=== PATIENT | male | born 1985 | race Caucasian/White ===

== ENCOUNTER 2019-05-13 05:13 | Emergency (ER) | payer BC, OTHER ==
--- NOTE | 2019-05-13 05:29 | ED ---
Skin Complaint - HPI Summary HPI Summary: 33-year-old male with no significant past medical history presents to the emergency department today with chief complaint of a worsening abscess on the right side of his face which began 2 days ago. He was recently seen in urgent care yesterday and placed on Bactrim. The patient states he has taken 2 doses of Bactrim but his abscess continues to increase in pain, swelling, warmth. He describes this pain as a 4 out of 10 aching pain on his right cheek. He came in today with concerns that his antibiotic is not adequate to treat this. he denies fevers, chills, changes in vision, pain with eye movements, dental pain, difficulty breathing. He does state his pain is worse when he moves his jaw. he has not taken any pain medication prior to arrival. He denies any recreational drug, alcohol use, smoking. He denies fever, chest pain, abdominal pain, pain with urination, rash. - History of Current Complaint Chief Complaint: EDRashSkinAbscess Time Seen by Provider: 05/13/19 05:28 Stated Complaint: FACIAL SWELLING PER PT Hx Obtained From: Patient Onset/Duration: Started Days Ago - 2 days ago Timing: Constant Onset Severity: Mild Current Severity: Mild Pain Intensity: 3 Pain Scale Used: 0-10 Numeric Skin Location: Face - Right side of face near cheek Character: Swelling, Pain, Redness, Raised, Painful Aggravating Symptom(s): Touch, Other: - Talking, moving mouth Associated Signs & Symptoms: Tenderness - Allergy/Home Medications Allergies/Adverse Reactions: Allergies Allergy/AdvReac Type Severity Reaction Status Date / Time No Known Allergies Allergy Verified 05/13/19 05:22 PMH/Surg Hx/FS Hx/Imm Hx Infectious Disease History: No Infectious Disease History: Denies: Traveled Outside the [place] in Last 30 Days Review of Systems Constitutional: Negative Negative: Fever Negative: Photophobia, Blurred Vision, Diplopia, Erythema Negative: Dental Pain, Sore Throat, Ear Ache, Nasal Discharge Cardiovascular: Negative Respiratory: Negative Gastrointestinal: Negative Negative: Decreased ROM Positive: Other - erythema to right cheek and lower right eye lid Negative: Headache, Slurred Speech Psychological: Normal All Other Systems Reviewed And Are Negative: Yes Physical Exam Triage Information Reviewed: Yes Vital Signs On Initial Exam: Initial Vitals Temp Pulse Resp BP Pulse Ox 98.5 F 79 16 124/72 98 05/13/19 05:16 05/13/19 05:16 05/13/19 05:16 05/13/19 05:16 05/13/19 05:16 Vital Signs Reviewed: Yes Appearance: Positive: Well-Appearing, No Pain Distress Skin: Positive: Warm, Skin Color Reflects Adequate Perfusion, Other - Significant abscess noted to the patient's right cheek. TENS unit centimeter in diameter area of erythema and mild induration overlying the right cheek. Erythema extends to the patient's right lower eyelid. Since warm to the touch. No appreciable area of fluctuance. Head/Face: Positive: Normal Head/Face Inspection Eyes: Positive: Normal, EOMI, INÉS, Other: - No pain with extraocular movement. No complaints of double vision. ENT: Positive: Hearing grossly normal, Pharynx normal, TMs normal, Uvula midline , Other - No dental pain. Negative: Nasal drainage, TM bulging, TM dull, TM red , Tonsillar swelling, Tonsillar exudate, Trismus, Muffled voice, Hoarse voice Dental: Positive: Other - Abscess on right cheek does not involve gingiva or show signs of being a dental abscess.. Negative: Percussion Tenderness @, Dental Fracture @, Abscess @ Neck: Positive: Nontender Respiratory/Lung Sounds: Positive: Clear to Auscultation, Breath Sounds Present Cardiovascular: Positive: Normal, RRR, S1, S2 Neurological: Positive: Sensory/Motor Intact, Alert, Oriented to Person Place, Time, Speech Normal. Negative: EOM Palsy Psychiatric: Positive: Normal AVPU Assessment: Alert Procedures - Sedation Patient Received Moderate/Deep Sedation with Procedure: No Diagnostics - Vital Signs Vital Signs Temp Pulse Resp BP Pulse Ox 05/13/19 05:16 98.5 F 79 16 124/72 98 - Laboratory Result Diagrams: 05/13/19 06:23 05/13/19 06:23 Lab Statement: Any lab studies that have been ordered have been reviewed, and results considered in the medical decision making process. Course/Dx - Course Course Of Treatment: Patient was evaluated in the emergency department today for a facial abscess on his right cheek which began 2 days ago. he came in today due to worsening symptoms although he was seen at urgent care yesterday and placed on Bactrim. He is currently taking 2 doses. The patient was seen and evaluated. Physical exam and vital sign showed no evidence of systemic illness or signs of sepsis. An IV was placed and he was given a dose of 300 mg of IV clindamycin. Laboratory studies and CT maxillofacial with contrast were obtained to investigate severity of the abscess. CT scan with IV contrast of the maxillofacial region showed no evidence of an abscess but did reveal an area of cellulitis of the right cheek. There was no evidence on CT of orbital or preorbital cellulitis. Due to lack of abscess formation incision and drainage was not needed. An additional antibiotic was prescribed him Keflex 500 mg to be taken 4 times a day which is to be taken with his current prescription of Bactrim for treatment of the cellulitis. He was informed to follow-up with his primary care physician in 2-3 days for skin check and continued management. He was told to return to the emergency department immediately if he develops any new or worsening symptoms. His vitals were stable to time of discharge. He agreed with this plan. - Differential Diagnoses - Skin Complaint Differential Diagnoses: Abscess, Cellulitis - Diagnoses Provider Diagnoses: Cellulitis Discharge ED - Sign-Out/Discharge Documenting (check all that apply): Patient Departure - Discharge Plan Condition: Improved Disposition: HOME Prescriptions: Cephalexin CAP* [Keflex CAP*] 500 mg PO QID #28 cap Patient Education Materials: Cellulitis (ED) Referrals: Care [facility] [Outside] - 2 Days Leonid Joe MD [Primary Care Provider] - 2 Days Additional Instructions: You were seen in the emergency department today due to cellulitis on your right cheek which continued to get worse. The CT scan of your maxillofacial region showed evidence of cellulitis but no abscess. Please continue taking your prescribed Bactrim for continued management of your cellulitis as well as the new antibiotic I have sent to your pharmacy called Keflex. This antibiotic is to be taken every 6 hours or 4 times a day for 7 days. Please in short to be taking both Keflex and Bactrim every day for dual therapy. You may take ibuprofen 600 mg every 6 hours as needed for pain and inflammation. Do not take this for longer than one week. If you develop any new symptoms such as fever, chills, pain with moving your eyes, significantly decreased vision or your symptoms continue to worsen please return to the emergency Department immediately. Please follow-up with your primary care doctor in 2-3 days for skin check and further management. - Billing Disposition and Condition Condition: IMPROVED Disposition: Home - Attestation Statements Provider Attestation: pt seen by midlevel provider independently, based on their assessment, it was not necessary to present the case to me but I was available for consultation. I did not form a physician-patient relationship with the patient. The chart however, has been reviewed. am signing this note strictly in an administrative capacity. Addendum entered and electronically signed by Bolivar Cruz PA 05/13/19 09:13: ED Addendum Addendum: CBC with differential resulted with no evidence of leukocytosis with white blood cell count 7.6. Platelet count is normal. Chemistry panel shows no electrolyte abnormalities as well as normal renal function and liver function. His C-reactive protein was slightly elevated at 32.48 and ESR was mildly elevated at 16 likely due to his cellulitis His laboratory results and vital signs indicate no signs of systemic illness such as sepsis as a consequence of his cellulitis.
[2019-05-13] MEDS: Clindamycin 300 MG IVPREMIX* 300 MG/50 ML SDV IVPB ONE (05:58)
[2019-05-13 06:50] LABS: ABS Eosinophils 0.1 10^3/ul (0-0.6); ABS Lymphocytes 1.4 10^3/ul (1.0-4.8); ABS Monocytes 0.9 10^3/ul (0-0.8); ABS Neutrophils 5.3 10^3/ul (1.5-7.7); Eosinophil % 1.2 %; Hematocrit 42 % (42-52); Hemoglobin 14.7 g/dL (14.0-18.0); Lymphocyte % 17.9 %; Mean Corpuscular HGB Conc 35 g/dL (31-36); Mean Corpuscular Hemoglobin 33 pg (27-31); Mean Corpuscular Volume 96 fL (80-94); Mean Platelet Volume 9.5 fL (7.4-10.4); Nucleated Red Blood Cells % 0.1; Platelet Count 181 10^3/uL (150-450); Red Blood Count 4.41 10^6 /uL (4.18-5.48); Red Cell Distribution Width 13 % (10-15); White Blood Count 7.6 10^3/uL (3.5-10.8)
[2019-05-13 06:54] LABS: Albumin 4.4 g/dL (3.2-5.2); Albumin/Globulin Ratio 1.6 (1-3); BUN/Creatinine Ratio 16.7 (8-20); C Reactive Protein 32.48 mg/L (<8.01); Calcium 9.8 mg/dL (8.6-10.3); EGFR African American 95.9 (>60); EGFR Non-African American 79.2 (>60); Globulin 2.8 g/dL (2-4); Potassium 4.8 mmol/L (3.5-5.0); Total Bilirubin 0.7 mg/dL (0.2-1.0); Total Protein 7.2 g/dL (6.4-8.9)
[2019-05-13] MEDS: Iohexol 300* (CONTRAST) 10 ML SDV IV ONE (07:05)
[2019-05-13 08:45] VITALS: BP 111/57
[2019-05-13 09:01] LABS: Erythrocyte Sed Rate 16 mm/Hr (0-14)
== END 2019-05-13 08:15 | disposition home or self-care (01) ==
LOC: ED 05:13
DX: L03.211 Cellulitis of face (principal)
CPT/HCPCS: 36415; 70487; 80053; 85025; 85652; 86140; 96365; 99283; Q9967